=== PATIENT | female | born 1945 | race American Indian/Alaskan Native ===

== ENCOUNTER 2019-07-15 12:20 | Inpatient (IN) | payer BC, MEDICARE ==
--- NOTE | 2019-07-15 12:45 | Event Note ---
ED Screening Note Date of service: 07/15/19 Time: 12:37 ED Screening Note: This is a 74 y.o. F. that presents to the ER with tarry stools from Dr. Esposito office. Reports abdominal pain and tarry stools for 3 days. This initial assessment/diagnostic orders/clinical plan/treatment(s) is/are subj ect to change based on patients health status, clinical progression and re- assessment by fellow clinical providers in the ED. Further treatment and workup at subsequent clinical providers discretion. Patient/guardian urged not to elope from the ED as their condition may be serious if not clinically assessed and managed. Initial orders include: Labs and CT of abdomen
[2019-07-15 13:49] LABS: Basophils % (Auto) 0.6 % (0.0-1.8); Eosinophils # (Auto) 0.2 K/mm3 (0.0-0.4); Eosinophils % (Auto) 2.1 % (0.0-4.3); Hematocrit 28.2 % (30.3-42.9); Hemoglobin 9.3 gm/dl (10.1-14.3); Lymphocytes # (Auto) 1.9 K/mm3 (1.2-5.4); Lymphocytes % (Auto) 24.5 % (13.4-35.0); Mean Corpuscular HGB Conc 33 % (30-34); Mean Corpuscular Volume 85 fl (79-97); Monocytes # (Auto) 0.6 K/mm3 (0.0-0.8); Monocytes % (Auto) 7.2 % (0.0-7.3); Platelet Count 301 K/mm3 (140-440); Red Blood Count 3.33 M/mm3 (3.65-5.03); Red Cell Distribution Width 15.9 % (13.2-15.2)
[2019-07-15 14:12] LABS: Albumin 3.4 g/dL (3.9-5); Calcium 8.9 mg/dL (8.4-10.2)
[2019-07-15 14:19] LABS: Bacteria,Urine 1+ /HPF (Negative); Bilirubin,Urine NEG (Negative); Blood,Urine NEG (Negative); Color,Urine Yellow (Yellow); Mucus,Urine FEW /HPF; Protein,Urine <15 mg/dL mg/dL (Negative); Urobilinogen,Urine < 2.0 mg/dL (<2.0)
[2019-07-15] MEDS ORDERED: PANTOPRAZOLE 40 MG INJ IV ONE (14:45)
--- NOTE | 2019-07-15 15:04 | Emergency Department Report ---
ED GI Bleed HPI - General Chief complaint: Abdominal Pain Stated complaint: BLOOD IN STOOL Time Seen by Provider: 07/15/19 12:37 Source: patient Mode of arrival: Ambulatory Limitations: No Limitations - History of Present Illness Initial comments: Mrs. Craig is a 74 yo female with hx of HTN and gastric bypass 2013 who presents with dark tarry stools for the past 3 days. She has mild epigastric pain persistent. No hx of PUD. Does not use aspirin or ibuprofen. Referred to ED after being evaluated by PCP Dr. Vaibhav CLAUDIO complaint: melena, other (Dark tarry stool) -: Gradual, days(s) (3) Location: epigastric Radiation: none Quality: dull Consistency: constant Improves with: none Worsens with: none Context: other (hx of gastric bypass 2013 at [facility]) - Related Data Allergies Allergy/AdvReac Type Severity Reaction Status Date / Time No Known Allergies Allergy Unverified 01/18/15 12:12 ED Review of Systems ROS: Stated complaint: BLOOD IN STOOL Other details as noted in HPI Comment: All other systems reviewed and negative Constitutional: malaise Respiratory: denies: cough, shortness of breath Cardiovascular: denies: chest pain Gastrointestinal: abdominal pain. denies: nausea, vomiting, diarrhea ED Past Medical Hx - Past Medical History Previous Medical History?: Yes Hx Hypertension: Yes - Surgical History Past Surgical History?: Yes Additional Surgical History: Gastric Bypass 2013. Hysterectomy - Social History Smoking Status: Never Smoker Substance Use Type: None ED Physical Exam - General Limitations: No Limitations General appearance: alert, in no apparent distress - Head Head exam: Present: atraumatic, normocephalic - Eye Eye exam: Present: normal appearance, scleral icterus - ENT ENT exam: Present: mucous membranes moist - Neck Neck exam: Present: normal inspection, full ROM - Respiratory Respiratory exam: Present: normal lung sounds bilaterally. Absent: respiratory distress, wheezes, rales, rhonchi, chest wall tenderness, accessory muscle use, decreased breath sounds, prolonged expiratory - Cardiovascular Cardiovascular Exam: Present: regular rate, normal rhythm, normal heart sounds. Absent: systolic murmur, diastolic murmur, rubs, gallop - GI/Abdominal GI/Abdominal exam: Present: soft, normal bowel sounds. Absent: distended, tenderness, guarding, rebound - Rectal Rectal exam: Present: heme (+) stool, black stool (black thick tarry stool), hemorrhoids - Extremities Exam Extremities exam: Present: normal inspection - Back Exam Back exam: Present: normal inspection - Neurological Exam Neurological exam: Present: alert, oriented X3 - Psychiatric Psychiatric exam: Present: normal affect, normal mood - Skin Skin exam: Present: warm, dry, intact, normal color. Absent: rash ED Course Vital Signs 07/15/19 12:37 Temperature 98.2 F Pulse Rate 76 Respiratory 20 Rate Blood Pressure 156/61 O2 Sat by Pulse 96 Oximetry ED Medical Decision Making - Lab Data Result diagrams: 07/15/19 13:15 07/15/19 13:15 Laboratory Results - last 24 hr 07/15/19 07/15/19 07/15/19 13:15 13:15 Unknown WBC 7.7 RBC 3.33 L Hgb 9.3 L Hct 28.2 L MCV 85 MCH 28 MCHC 33 RDW 15.9 H Plt Count 301 Lymph % (Auto) 24.5 [place] % (Auto) 7.2 Eos % (Auto) 2.1 Baso % (Auto) 0.6 Lymph # 1.9 [place] # 0.6 Eos # 0.2 Baso # 0.0 Seg Neutrophils % 65.6 Seg Neutrophils # 5.1 Sodium 143 Potassium 3.9 Chloride 111.2 H Carbon Dioxide 22 Anion Gap 14 BUN 25 H Creatinine 1.5 H Estimated GFR 41 BUN/Creatinine Ratio 17 Glucose 105 H Calcium 8.9 Total Bilirubin 0.20 AST 20 ALT 15 Alkaline Phosphatase 81 Total Protein 6.7 Albumin 3.4 L Albumin/Globulin Ratio 1.0 Lipase 21 Urine Color Yellow Urine Turbidity Clear Urine pH 5.0 Ur Specific [place] 1.019 Urine Protein <15 mg/dl Urine Glucose (UA) Neg Urine Ketones Neg Urine Blood Neg Urine Nitrite Neg Urine Bilirubin Neg Urine Urobilinogen < 2.0 Ur Leukocyte Esterase Neg Urine WBC (Auto) 1.0 Urine RBC (Auto) 2.0 U Epithel Cells (Auto) 1.0 Urine Bacteria (Auto) 1+ Urine Mucus Few - Medical Decision Making Mrs. Craig presents with UGIB. I suspect ulcer related to previous gastric bypass. Protonix bolus and infusion initiated in the ED. GI consulted. Admitted to hospitalist [facility] in fair condition. I provided bridging admission orders. Critical Care Time: Yes Critical care attestation.: If time is entered above; I have spent that time in minutes in the direct care of this critically ill patient, excluding procedure time. 40 minutes of critical care time excluding procedures were used in the care of the patient. I updated the daughters per phone. I had an extensive conversati on with about treatment plan. Patient required multiple consultations with the GI service and hospitalist service. She required multiple assessments. ED Disposition Clinical Impression: UGIB (upper gastrointestinal bleed) Disposition: OP ADMIT IP TO THIS HOSP Is pt being admited?: Yes Does the pt Need Aspirin: No Condition: Stable
[2019-07-15] MEDS ORDERED: PANTOPRAZOLE 80 MG in SODIUM CHLORIDE 0.9% 100 ML IV ONE (15:45)
--- NOTE | 2019-07-15 15:45 | Gastroenterology Consultation ---
History of Present Illness - Reason for Consult Consult date: 07/15/19 UGIB Requesting physician: GA ALVARADO - History of Present Illness Patient is a 74 y/o female with PMH of HTN and s/p gastric bypass in 2013 who presented to ED with c/o dark tarry stools x 3 days with associated mild epigastic pain. Last episode of black stool was this afternoon. No hematemesis or hematochezia. Denies fever, CP, SOB, unintentional wt loss, diarrhea, or constipation. No hx of prior GI bleeding, PUD, or liver disease. No ETOH abuse or NSAID use. Last EGD in 2013 prior to gastric bypass with normal results per patient. Last PO intake was at 1000 this am with solid food. Past History Past Medical History: hypertension Past Surgical History: bowel surgery (bastric bypass 2013) Social history: denies: smoking, alcohol abuse Medications and Allergies Allergies Allergy/AdvReac Type Severity Reaction Status Date / Time No Known Allergies Allergy Unverified 01/18/15 12:12 Active Meds: Active Medications Pantoprazole Sodium 80 mg/ (Sodium Chloride) 100 mls @ 10 mls/hr IV ONCE ONE Stop: 07/16/19 01:44 Last Admin: 07/15/19 15:40 Dose: 8 mg/hr, 10 mls/hr Documented by: medications reviewed/updated as required Review of Systems - Review of Systems All systems: negative Gastrointestinal: abdominal pain (epigastric), melena, no hematemesis, no coffee ground emesis, no hematochezia Exam - Constitutional Vital Signs: Temp Pulse Resp BP Pulse Ox 98.2 F 76 20 156/61 96 07/15/19 12:37 07/15/19 12:37 07/15/19 12:37 07/15/19 12:37 07/15/19 12:37 General appearance: no acute distress - EENT Eyes: PERRL, EOM intact ENT: hearing intact - Respiratory Respiratory effort: normal - Cardiovascular Rhythm: regular - Gastrointestinal General gastrointestinal: Present: soft, tender (slight TTP in epigastric area), non-distended, normal bowel sounds - Integumentary Integumentary: Present: warm, dry - Neurologic Neurological: alert and oriented x3 - Labs CBC & Chem 7: 07/15/19 13:15 07/15/19 13:15 Lab Results: Laboratory Results - last 24 hr 07/15/19 07/15/19 07/15/19 13:15 13:15 Unknown WBC 7.7 RBC 3.33 L Hgb 9.3 L Hct 28.2 L MCV 85 MCH 28 MCHC 33 RDW 15.9 H Plt Count 301 Lymph % (Auto) 24.5 [place] % (Auto) 7.2 Eos % (Auto) 2.1 Baso % (Auto) 0.6 Lymph # 1.9 [place] # 0.6 Eos # 0.2 Baso # 0.0 Seg Neutrophils % 65.6 Seg Neutrophils # 5.1 Sodium 143 Potassium 3.9 Chloride 111.2 H Carbon Dioxide 22 Anion Gap 14 BUN 25 H Creatinine 1.5 H Estimated GFR 41 BUN/Creatinine Ratio 17 Glucose 105 H Calcium 8.9 Total Bilirubin 0.20 AST 20 ALT 15 Alkaline Phosphatase 81 Total Protein 6.7 Albumin 3.4 L Albumin/Globulin Ratio 1.0 Lipase 21 Urine Color Yellow Urine Turbidity Clear Urine pH 5.0 Ur Specific [place] 1.019 Urine Protein <15 mg/dl Urine Glucose (UA) Neg Urine Ketones Neg Urine Blood Neg Urine Nitrite Neg Urine Bilirubin Neg Urine Urobilinogen < 2.0 Ur Leukocyte Esterase Neg Urine WBC (Auto) 1.0 Urine RBC (Auto) 2.0 U Epithel Cells (Auto) 1.0 Urine Bacteria (Auto) 1+ Urine Mucus Few Assessment and Plan 1.UGIB/melena 2.Hx of gastric bypass 2013 -afebrile -WBC, plt, LFT, and lipase WNL -BUN 25 -H/H 9.3/28.2 -continue to monitor H/H and transfuse as needed -pt reports dark tarry stool with associated epigastric pain x 3 days. No hematemesis or hematochezia. -currently HD stable -etiology-possible ulcer (anastomotic?) vs other -will schedule for EGD tomorrow given PO intake with solid food today, but will be available for emergent EGD if needed -Keep NPO; INR in am -continue protonix drip -continue supportive care -will follow
--- NOTE | 2019-07-15 16:03 | XRay Report ---
CHEST 1 VIEW INDICATION / CLINICAL INFORMATION: upper gi bleed. COMPARISON: None available. FINDINGS: SUPPORT DEVICES: None. HEART / MEDIASTINUM: No significant abnormality. LUNGS / PLEURA: No significant pulmonary or pleural abnormality.. No pneumothorax. ADDITIONAL FINDINGS: No significant additional findings. IMPRESSION: 1. No acute findings. Signer Name: Reji Khoury MD Signed: 07/15/2019 3:59 PM Workstation Name: [id number]
--- NOTE | 2019-07-15 16:25 | History and Physical Report ---
History of Present Illness Chief complaint: I have blood in the toilet History of present illness: 74 YO Female with Obesity, HTN, presents to ED for evaluation. Pt states that she has experienced multiple "black, tarry bowel movements over the past 3 days. Pt reports epigastric discomfort over the past 3 days. Pt describes bowel movements as "large", and reports that the "toilet was filled with blood". Pt denies nausea and vomiting. Pt transported to [facility] via private vehicle. Pt seen and evaluated in ED and found to have GI Bleed. Pt is dizzy, and acknowledges feeling weak. Pt HGB is stable at 10. GI consulted in ED. Pt admitted to IM and initiated on PPI therapy. Pt denies fever, chills, CP, Palpitations, Trauma, Ingestion of Food/Water from new/different sources, unintentional weight loss, night sweats, or recent ill contacts. Pt admitted to [facility] for further management of GI Bleeding. No prior admission for review. All medication listed at time of admission has been reconciled. Past History Past Medical History: hypertension Past Surgical History: hysterectomy, bowel surgery (bastric bypass 2013) Social history: denies: smoking, alcohol abuse Family history: no significant family history (reviewed) Medications and Allergies Allergies Allergy/AdvReac Type Severity Reaction Status Date / Time No Known Allergies Allergy Unverified 01/18/15 12:12 Active Meds: Active Medications Pantoprazole Sodium 80 mg/ (Sodium Chloride) 100 mls @ 10 mls/hr IV ONCE ONE Stop: 07/16/19 01:44 Last Admin: 07/15/19 15:40 Dose: 8 mg/hr, 10 mls/hr Documented by: Review of Systems Constitutional: weakness, no weight loss, no weight gain, no chills, no sweats, no night sweats Ears, nose, mouth and throat: no ear pain, no ear discharge, no tinnitis, no decreased hearing, no nose pain, no nasal congestion, no nasal discharge Breasts: no change in shape, no swelling, no mass Cardiovascular: no chest pain, no orthopnea, no palpitations, no rapid/irregular heart beat, no edema Respiratory: no cough, no cough with sputum, no excessive sputum, no hemoptysis Gastrointestinal: BRBPR, no abdominal pain, no nausea, no vomiting, no constipation Genitourinary Female: no pelvic pain, no flank pain, no menorrhagia, no dysuria, no urinary frequency, no urgency Rectal: no pain, no incontinence, no itching, no hemorrhoids Musculoskeletal: no neck pain, no shooting arm pain, no arm numbness/tingling, no shooting leg pain, no leg numbness/tingling Integumentary: no rash, no pruritis, no redness, no wounds, no jaundice Neurological: no transient paralysis, no numbness, no seizures, no syncope Psychiatric: no anxiety, no memory loss, no hypersomnia, no change in appetite, no change in libido Endocrine: no cold intolerance, no heat intolerance, no polyphagia, no excessive thirst, no polyuria, no excessive sweating Hematologic/Lymphatic: no easy bruising, no easy bleeding, no lymphadenopathy, no lymphedema Allergic/Immunologic: no urticaria, no allergic rhinitis, no wheezing, no persistent infections, no anaphylaxis, no angioedema Exam - Constitutional Vitals: Temp Pulse Resp BP Pulse Ox 98.2 F 76 20 156/61 96 07/15/19 12:37 07/15/19 12:37 07/15/19 12:37 07/15/19 12:37 07/15/19 12:37 General appearance: Present: mild distress, obese - EENT Eyes: Present: PERRL ENT: hearing intact, clear oral mucosa - Neck Neck: Present: supple, normal ROM - Respiratory Respiratory effort: normal Respiratory: bilateral: CTA - Cardiovascular Heart Sounds: Present: S1 & S2. Absent: rub, click - Extremities Extremities: pulses symmetrical, No edema Peripheral Pulses: within normal limits - Abdominal General gastrointestinal: Present: soft, non-tender, non-distended, normal bowel sounds, other (protuberant, hyperactive bowel sounds) Female genitourinary: Present: normal - Integumentary Integumentary: Present: clear, warm, dry - Musculoskeletal Musculoskeletal: generalized weakness - Psychiatric Psychiatric: appropriate mood/affect, intact judgment & insight - Neurologic Neurologic: CNII-XII intact, moves all extremities Results - Labs CBC & Chem 7: 07/15/19 13:15 07/15/19 13:15 Labs: Abnormal lab results 07/15/19 07/15/19 Range/Units 13:15 13:15 RBC 3.33 L (3.65-5.03) M/mm3 Hgb 9.3 L (10.1-14.3) gm/dl Hct 28.2 L (30.3-42.9) % RDW 15.9 H (13.2-15.2) % Chloride 111.2 H (98-107) mmol/L BUN 25 H (7-17) mg/dL Creatinine 1.5 H (0.7-1.2) mg/dL Glucose 105 H (65-100) mg/dL Albumin 3.4 L (3.9-5) g/dL Assessment and Plan - Patient Problems (1) GI bleeding Current Visit: Yes Status: Acute Qualifiers: GI bleed type/associated pathology: unspecified gastrointestinal hemorrhage type Qualified Code(s): K92.2 - Gastrointestinal hemorrhage, unspecified Plan to address problem: Admit to IMCU: GI consulted, IV ppi therapy, PRBC transfusion if hgb drops by 2 or more grams, serial cbc, endoscopy as per GI team. (2) ALAN (acute kidney injury) Current Visit: Yes Status: Acute Plan to address problem: IVF resuscitation therapy, monitor uop q shift, supportive are. repeat bmp in am to monitor serum creatnine. (3) Obesity (BMI 35.0-39.9 without comorbidity) Current Visit: Yes Status: Acute Plan to address problem: S/P Gastric Bypass, balanced diet, increased physical activity at discharge. (4) Advance care planning Current Visit: Yes Status: Acute Plan to address problem: Pt is Full code. Pt and acknowledge understanding and agreement with care plan. (5) DVT prophylaxis Current Visit: Yes Status: Acute Plan to address problem: SCD to BLE while in bed, Hold anticoagulation for now.
[2019-07-15] MEDS ORDERED: ALBUTEROL 2.5 MG/3 ML NEBU IH PRN (16:26)
[2019-07-16 04:09] LABS: Basophils % (Auto) 0.3 % (0.0-1.8); Eosinophils # (Auto) 0.2 K/mm3 (0.0-0.4); Eosinophils % (Auto) 2.5 % (0.0-4.3); Hemoglobin 9.1 gm/dl (10.1-14.3); Lymphocytes # (Auto) 2.2 K/mm3 (1.2-5.4); Lymphocytes % (Auto) 29.5 % (13.4-35.0); Mean Corpuscular HGB Conc 32 % (30-34); Mean Corpuscular Volume 85 fl (79-97); Monocytes # (Auto) 0.7 K/mm3 (0.0-0.8); Platelet Count 306 K/mm3 (140-440); Red Blood Count 3.31 M/mm3 (3.65-5.03); Red Cell Distribution Width 15.8 % (13.2-15.2)
[2019-07-16 04:21] LABS: INR 1.02 (0.87-1.13)
[2019-07-16 04:25] LABS: Albumin 3.4 g/dL (3.9-5); Calcium 9.1 mg/dL (8.4-10.2)
--- NOTE | 2019-07-16 09:39 | Gastroenterology Progress Note ---
Assessment and Plan GI: presented w/ anemia and melena, signs UGI bleed - h/h stable w/o signs bleeding overnight - continue PPI IV - due to Anaes schedule may have to push EGD to am, will do today of signs bleeding - will start po, NPO after MN - ok to transfer to floor from GI standpoint - will follow Subjective Date of service: 07/16/19 Interval history: - no signs bleeding overnight Objective - Constitutional Vitals: Temp Pulse Resp BP Pulse Ox 98.3 F 73 15 142/67 96 07/16/19 07:46 07/16/19 06:00 07/16/19 06:00 07/16/19 06:00 07/16/19 06:00 General appearance: no acute distress - EENT Eyes: PERRL - Neck Neck: supple - Respiratory Respiratory: bilateral: CTA - Cardiovascular Rhythm: regular Heart Sounds: Present: S1 & S2 - Gastrointestinal General gastrointestinal: Present: soft, non-tender, non-distended - Labs CBC & Chem 7: 07/16/19 03:43 07/16/19 03:43 Labs: Laboratory Results - last 24 hr 07/15/19 07/15/19 07/15/19 13:15 13:15 Unknown WBC 7.7 RBC 3.33 L Hgb 9.3 L Hct 28.2 L MCV 85 MCH 28 MCHC 33 RDW 15.9 H Plt Count 301 Lymph % (Auto) 24.5 [place] % (Auto) 7.2 Eos % (Auto) 2.1 Baso % (Auto) 0.6 Lymph # 1.9 [place] # 0.6 Eos # 0.2 Baso # 0.0 Seg Neutrophils % 65.6 Seg Neutrophils # 5.1 PT INR Sodium 143 Potassium 3.9 Chloride 111.2 H Carbon Dioxide 22 Anion Gap 14 BUN 25 H Creatinine 1.5 H Estimated GFR 41 BUN/Creatinine Ratio 17 Glucose 105 H Calcium 8.9 Magnesium Total Bilirubin 0.20 AST 20 ALT 15 Alkaline Phosphatase 81 Total Protein 6.7 Albumin 3.4 L Albumin/Globulin Ratio 1.0 Lipase 21 Urine Color Yellow Urine Turbidity Clear Urine pH 5.0 Ur Specific [place] 1.019 Urine Protein <15 mg/dl Urine Glucose (UA) Neg Urine Ketones Neg Urine Blood Neg Urine Nitrite Neg Urine Bilirubin Neg Urine Urobilinogen < 2.0 Ur Leukocyte Esterase Neg Urine WBC (Auto) 1.0 Urine RBC (Auto) 2.0 U Epithel Cells (Auto) 1.0 Urine Bacteria (Auto) 1+ Urine Mucus Few 07/16/19 07/16/19 07/16/19 03:43 03:43 03:43 WBC 7.3 RBC 3.31 L Hgb 9.1 L Hct 28.0 L MCV 85 MCH 27 L MCHC 32 RDW 15.8 H Plt Count 306 Lymph % (Auto) 29.5 [place] % (Auto) 9.0 H Eos % (Auto) 2.5 Baso % (Auto) 0.3 Lymph # 2.2 [place] # 0.7 Eos # 0.2 Baso # 0.0 Seg Neutrophils % 58.7 Seg Neutrophils # 4.3 PT INR Sodium 145 Potassium 4.3 Chloride 110.9 H Carbon Dioxide 24 Anion Gap 14 BUN 21 H Creatinine 1.1 Estimated GFR 59 BUN/Creatinine Ratio 19 Glucose 95 Calcium 9.1 Magnesium 2.20 Total Bilirubin 0.30 AST 18 ALT 13 Alkaline Phosphatase 78 Total Protein 6.5 Albumin 3.4 L Albumin/Globulin Ratio 1.1 Lipase Urine Color Urine Turbidity Urine pH Ur Specific [place] Urine Protein Urine Glucose (UA) Urine Ketones Urine Blood Urine Nitrite Urine Bilirubin Urine Urobilinogen Ur Leukocyte Esterase Urine WBC (Auto) Urine RBC (Auto) U Epithel Cells (Auto) Urine Bacteria (Auto) Urine Mucus 07/16/19 03:43 WBC RBC Hgb Hct MCV MCH MCHC RDW Plt Count Lymph % (Auto) [place] % (Auto) Eos % (Auto) Baso % (Auto) Lymph # [place] # Eos # Baso # Seg Neutrophils % Seg Neutrophils # PT 13.5 INR 1.02 Sodium Potassium Chloride Carbon Dioxide Anion Gap BUN Creatinine Estimated GFR BUN/Creatinine Ratio Glucose Calcium Magnesium Total Bilirubin AST ALT Alkaline Phosphatase Total Protein Albumin Albumin/Globulin Ratio Lipase Urine Color Urine Turbidity Urine pH Ur Specific [place] Urine Protein Urine Glucose (UA) Urine Ketones Urine Blood Urine Nitrite Urine Bilirubin Urine Urobilinogen Ur Leukocyte Esterase Urine WBC (Auto) Urine RBC (Auto) U Epithel Cells (Auto) Urine Bacteria (Auto) Urine Mucus
[2019-07-16] MEDS ORDERED: WATER FOR IRRIG STERILE 250 ML BOTTLE IR ONE (10:00)
[2019-07-16] MEDS ORDERED: SODIUM CHLORIDE 0.9% 1000 ML 1,000 ML ONE (10:00)
--- NOTE | 2019-07-16 11:30 | Consultation ---
History of Present Illness Consult date: 07/16/19 History of present illness: 74 year old obese -[place] female presenting with tach stools to the emergency room. She is found to be anemic but she denies any cardiac symptoms. Past History Past Medical History: hypertension Past Surgical History: hysterectomy, bowel surgery (bastric bypass 2013) Social history: denies: smoking, alcohol abuse Family history: no significant family history (reviewed) Medications and Allergies Allergies Allergy/AdvReac Type Severity Reaction Status Date / Time No Known Allergies Allergy Unverified 01/18/15 12:12 Home Medications Medication Instructions Recorded Confirmed Last Taken Type Cyanocobalamin [Vitamin B-12] 1,000 mcg IM QMONTH 07/15/19 07/15/19 07/03/19 10:00 History amLODIPine 10 mg PO DAILY 07/15/19 07/15/19 07/15/19 10:00 History Active Meds: Active Medications Albuterol (Proventil) 2.5 mg IH Q3HRT PRN PRN Reason: Shortness Of Breath Sodium Chloride (Nacl 0.9% 1000 Ml) 1,000 mls @ 50 mls/hr IV DIRECT XIAO Sodium Chloride (Sodium Chloride Flush Syringe 10 Ml) 10 ml IV BID XIAO Last Admin: 07/15/19 22:20 Dose: 10 ml Documented by: Sodium Chloride (Sodium Chloride Flush Syringe 10 Ml) 10 ml IV PRN PRN PRN Reason: LINE FLUSH Review of Systems Constitutional: no weight loss, no weight gain, no night sweats, no anorexia, no fatigue Ears, nose, mouth and throat: no ear pain, no ear discharge, no tinnitis Breasts: no normal, no discharge Cardiovascular: no chest pain, no orthopnea, no palpitations, no lightheadedness, no shortness of breath, no paroxysmal nocturnal dyspnea Respiratory: no cough, no hemoptysis, no congestion, no wheezing, no pleurisy Gastrointestinal: no abdominal pain, no nausea, no vomiting Genitourinary Female: no dyspareunia, no dysmenorrhea, no pelvic pain Rectal: no pain, no incontinence Musculoskeletal: no neck stiffness, no neck pain, no shooting arm pain, no arm numbness/tingling Integumentary: no rash, no pruritis, no redness Neurological: no head injury, no parathesias, no numbness, no vertigo, no headaches Endocrine: no cold intolerance, no heat intolerance, no polyphagia, no excessive thirst Hematologic/Lymphatic: no easy bruising, no easy bleeding Allergic/Immunologic: no urticaria, no allergic rhinitis, no wheezing Physical Examination Vital Signs Temp Pulse Resp BP Pulse Ox 98.2 F 76 20 156/61 96 07/15/19 12:37 07/15/19 12:37 07/15/19 12:37 07/15/19 12:37 07/15/19 12:37 General appearance: no acute distress, obese HEENT: Positive: PERRL, Normocephaly, Mucus Membranes Moist Neck: Positive: neck supple, trachea midline, Other (Midline trach). Negative: JVD/HJR Cardiac: Positive: Regular Rate, S1/S2, PMI, Dilated, Laterally Displaced Lungs: Positive: clear to auscultation, No Wheeze, Rales, Rhonchi Neuro: Positive: Grossly Intact Abdomen: Positive: Unremarkable, Soft, Active Bowel Sounds Extremities: Present: normal Results 07/16/19 03:43 07/16/19 03:43 Cardiac Enzymes 07/15/19 07/16/19 Range/Units 13:15 03:43 AST 20 18 (5-40) units/L Coagulation 07/16/19 Range/Units 03:43 PT 13.5 (12.2-14.9) Sec. INR 1.02 (0.87-1.13) CBC 07/15/19 07/16/19 Range/Units 13:15 03:43 WBC 7.7 7.3 (4.5-11.0) K/mm3 RBC 3.33 L 3.31 L (3.65-5.03) M/mm3 Hgb 9.3 L 9.1 L (10.1-14.3) gm/dl Hct 28.2 L 28.0 L (30.3-42.9) % Plt Count 301 306 (140-440) K/mm3 Lymph # 1.9 2.2 (1.2-5.4) K/mm3 [place] # 0.6 0.7 (0.0-0.8) K/mm3 Eos # 0.2 0.2 (0.0-0.4) K/mm3 Baso # 0.0 0.0 (0.0-0.1) K/mm3 Comprehensive Metabolic Panel 07/15/19 07/16/19 Range/Units 13:15 03:43 Sodium 143 145 (137-145) mmol/L Potassium 3.9 4.3 (3.6-5.0) mmol/L Chloride 111.2 H 110.9 H (98-107) mmol/L Carbon Dioxide 22 24 (22-30) mmol/L BUN 25 H 21 H (7-17) mg/dL Creatinine 1.5 H 1.1 (0.7-1.2) mg/dL Glucose 105 H 95 (65-100) mg/dL Calcium 8.9 9.1 (8.4-10.2) mg/dL AST 20 18 (5-40) units/L ALT 15 13 (7-56) units/L Alkaline Phosphatase 81 78 (35-129) units/L Total Protein 6.7 6.5 (6.3-8.2) g/dL Albumin 3.4 L 3.4 L (3.9-5) g/dL EKG interpretations - Telemetry EKG Rhythm: Sinus Rhythm Assessment and Plan 1. Acute GI bleed 2. Anemia secondary to GI bleed 3. Essential hypertension 4. Midline Tracheostomy 5. Obesity Plan. Patient is hemodynamically stable. No cardiac symptoms. GI consult pending
--- NOTE | 2019-07-16 13:39 | Progress Note ---
Assessment and Plan /Acute GI bleeding GI consulted, placed on IV ppi therapy, PRBC transfusion if hgb drops by 2 or more grams, serial cbc, endoscopy as per GI team tomorrow. NPO after midnight / ALAN (acute kidney injury) likely vasomotor nephropathy resolved with IVF resuscitation therapy, / Obesity (BMI 35.0-39.9 without comorbidity) S/P Gastric Bypass, balanced diet as tolerated /HTN, stable / Advance care planning Pt is Full code. Pt and acknowledge understanding and agreement with care plan. / DVT prophylaxis SCD to BLE while in bed, Hold anticoagulation for now. Subjective Date of service: 07/16/19 Interval history: Patient seen and examined. Medical records and medication list reviewed. No acute event overnight noted by the RN. Patient denies any chest pain or difficulty breathing. Patient denies any further active bleeding. Discussed plan of care at bedside with patient. Objective - Constitutional Vitals: Vital Signs - 12hr 07/16/19 07/16/19 07/16/19 02:00 02:01 03:01 Temperature Pulse Rate 62 58 L Pulse Rate [ 62 From Monitor] Respiratory 20 29 H 20 Rate Blood Pressure 124/58 112/84 O2 Sat by Pulse 99 99 99 Oximetry 07/16/19 07/16/19 07/16/19 04:01 04:20 05:00 Temperature 98.0 F Pulse Rate 58 L 60 Pulse Rate [ 60 From Monitor] Respiratory 13 22 Rate Blood Pressure 133/64 132/54 O2 Sat by Pulse 98 100 Oximetry 07/16/19 07/16/19 07/16/19 06:00 07:01 07:46 Temperature 98.3 F Pulse Rate 73 58 L Pulse Rate [ From Monitor] Respiratory 15 22 Rate Blood Pressure 142/67 134/58 O2 Sat by Pulse 96 98 Oximetry 07/16/19 07/16/19 07/16/19 08:00 09:01 09:52 Temperature Pulse Rate 58 L 57 L Pulse Rate [ 70 72 From Monitor] Respiratory 14 11 L 31 H Rate Blood Pressure 139/60 162/71 O2 Sat by Pulse 100 100 100 Oximetry General appearance: Present: no acute distress, well-nourished, obese - EENT Eyes: PERRL, EOM intact ENT: hearing intact, clear oral mucosa Ears: bilateral: normal - Neck Neck: supple, normal ROM - Respiratory Respiratory effort: normal Respiratory: bilateral: CTA - Cardiovascular Rhythm: regular Heart Sounds: Present: S1 & S2. Absent: gallop, rub Extremities: pulses intact, No edema, normal color, Full ROM - Gastrointestinal General gastrointestinal: Present: soft, non-tender, non-distended, normal bowel sounds - Integumentary Integumentary: clear, warm, dry - Musculoskeletal Musculoskeletal: 1, strength equal bilaterally - Neurologic Neurologic: moves all extremities - Psychiatric Psychiatric: memory intact, appropriate mood/affect, intact judgment & insight - Labs CBC & Chem 7: 07/16/19 03:43 07/16/19 03:43 Labs: Abnormal lab results 07/15/19 07/15/19 07/16/19 Range/Units 13:15 13:15 03:43 RBC 3.33 L 3.31 L (3.65-5.03) M/mm3 Hgb 9.3 L 9.1 L (10.1-14.3) gm/dl Hct 28.2 L 28.0 L (30.3-42.9) % MCH 27 L (28-32) pg RDW 15.9 H 15.8 H (13.2-15.2) % Millard % (Auto) 9.0 H (0.0-7.3) % Chloride 111.2 H (98-107) mmol/L BUN 25 H (7-17) mg/dL Creatinine 1.5 H (0.7-1.2) mg/dL Glucose 105 H (65-100) mg/dL Albumin 3.4 L (3.9-5) g/dL 07/16/19 Range/Units 03:43 RBC (3.65-5.03) M/mm3 Hgb (10.1-14.3) gm/dl Hct (30.3-42.9) % MCH (28-32) pg RDW (13.2-15.2) % Millard % (Auto) (0.0-7.3) % Chloride 110.9 H (98-107) mmol/L BUN 21 H (7-17) mg/dL Creatinine (0.7-1.2) mg/dL Glucose (65-100) mg/dL Albumin 3.4 L (3.9-5) g/dL
[2019-07-16] MEDS ORDERED: MORPHINE 2 MG/1 ML INJ IV ONE (17:30)
[2019-07-17] MEDS ORDERED: SODIUM CHLORIDE 0.9% 1000 ML 1,000 ML IV SCH (07:00)
[2019-07-17] MEDS ORDERED: WATER FOR IRRIG STERILE 1,000 ML BOTTLE ONE (07:42)
[2019-07-17] MEDS ORDERED: WATER FOR IRRIG STERILE 250 ML BOTTLE IR ONE (07:42)
--- NOTE | 2019-07-17 08:07 | Anesthesia Day of Surgery ---
Anesthesia Day of Surgery - Day of Surgery Patient Examined: Yes Patient H&P Reviewed: Yes Patient is NPO: Yes
--- NOTE | 2019-07-17 08:07 | Anesthesia Consultation ---
Anesthesia Consult and Med Hx Date of service: 07/17/19 - Airway Anesthetic Teeth Evaluation: Partials ROM Head & Neck: Adequate Mental/Hyoid Distance: Adequate Mallampati Class: Class II Intubation Access Assessment: Good - Pulmonary Exam CTA: Yes - Cardiac Exam Cardiac Exam: RRR - Pre-Operative Health Status ASA Pre-Surgery Classification: ASA2 Proposed Anesthetic Plan: MAC - Cardiovascular System Hx Hypertension: Yes
[2019-07-17] MEDS ORDERED: PROPOFOL 200 MG/20 ML VIAL IV ONE (08:23)
--- NOTE | 2019-07-17 09:11 | Progress Note ---
Assessment and Plan 1. Acute GI bleed 2. Anemia secondary to GI bleed 3. Essential hypertension 4. Obesity Plan. Patient is hemodynamically stable. No cardiac symptoms. Management as per GI/surgery Subjective Date of service: 07/17/19 Interval history: No cardiac symptoms. Objective Vital Signs Temp Pulse Pulse Resp BP BP Pulse Ox 07/17/19 08:00 98.3 F 56 L 12 151/64 97 07/17/19 07:49 64 100 07/17/19 07:47 99.3 F 57 L 18 151/64 97 07/17/19 05:32 56 L 07/17/19 02:41 98.1 F 61 18 155/61 98 07/16/19 20:00 59 L 18 95 07/16/19 19:52 98.4 F 59 L 18 140/56 95 07/16/19 18:32 98.2 F 66 18 125/48 94 07/16/19 18:30 142/52 07/16/19 18:11 72 11 L 140/62 100 07/16/19 18:00 71 24 140/62 99 07/16/19 17:51 70 13 109/55 96 07/16/19 17:41 72 29 H 119/62 97 07/16/19 17:30 76 19 119/62 97 07/16/19 17:21 77 29 H 109/55 07/16/19 17:11 75 26 H 109/55 07/16/19 17:00 96 H 22 159/72 07/16/19 16:51 90 26 H 159/72 97 07/16/19 16:41 89 22 159/72 97 07/16/19 16:00 98.7 F 65 61 24 156/78 99 07/16/19 15:01 67 17 148/62 99 07/16/19 14:00 61 65 24 146/68 100 07/16/19 13:00 59 L 19 150/77 100 07/16/19 12:00 98.3 F 64 64 18 151/74 100 07/16/19 11:01 64 28 H 138/66 07/16/19 10:00 80 11 L 147/56 100 07/16/19 09:52 72 31 H 100 - Physical Examination General: Appears Well, No Apparent Distress, Other (obese) HEENT: Positive: PERRL, Normocephaly, Mucus Membranes Moist Neck: Positive: neck supple, trachea midline, Other. Negative: JVD/HJR Cardiac: Lungs: Neuro: Positive: Grossly Intact Abdomen: Positive: Unremarkable, Soft, Active Bowel Sounds /Rectal: Normal Prostate, No Masses Skin: Musculoskeletal: No Fluid Collection, No Pain, Normal Range of Motion Gait: Normal Gait Extremities: Present: normal
--- NOTE | 2019-07-17 09:21 | Post Operative Note ---
Pre-op diagnosis: gi bleed Post-op diagnosis: same Findings: EGD: hiatal hernia - gastric bypass intact - otherwise negative Procedure: EGD Anesthesia: MAC Surgeon: SHAYLA HARKINS Estimated blood loss: none Pathology: list Specimen disposition: to lab Condition: stable Disposition: floor
[2019-07-17 09:26] VITALS: BP 126/53
--- NOTE | 2019-07-17 13:18 | Discharge Summary ---
Providers - Providers Date of Admission: 07/15/19 16:26 Date of discharge: 07/17/19 Attending physician: JAMI GALAN 07/15/19 15:30 Consult to Physician [CONS] Stat Comment: DR JENNY Rivas/MELODY @[id number] Consulting Provider: ALLEN LIRA Physician Instructions: Reason For Exam: UGIB 07/16/19 03:15 Consult to Physician [CONS] Urgent Comment: Consulting Provider: ANAY ESPINOSA Physician Instructions: Reason For Exam: Second degree AV block Primary care physician: ASHLEY BOYD MD Hospitalization Condition: Stable Pertinent studies: CXR - no acute findings Hospital course: Patient is a 74 y/o female with PMH of HTN and s/p gastric bypass in 2013 who presented to ED with c/o dark tarry stools x 3 days with associated mild epigastic pain. Last episode of black stool was this afternoon. No hematemesis or hematochezia. Denies fever, CP, SOB, unintentional wt loss, diarrhea, or constipation. No hx of prior GI bleeding, PUD, or liver disease. No ETOH abuse or NSAID use. Last EGD in 2013 prior to gastric bypass with normal results per patient. Last PO intake was at 1000 this am with solid food. Discharge diagnosis: /Acute GI bleeding GI consulted, placed on IV ppi therapy, Upper GI endoscopy as per GI team showed no actibe GI bleed. Plan for coloscopy as outpt, H/H stable / ALAN (acute kidney injury) likely vasomotor nephropathy resolved with IVF resuscitation therapy, / Obesity (BMI 35.0-39.9 without comorbidity) S/P Gastric Bypass, balanced diet as tolerated /HTN, stable / Advance care planning Pt is Full code. Pt and acknowledge understanding and agreement with care plan. / DVT prophylaxis SCD to BLE while in bed, Hold anticoagulation for now. Disposition: -01 TO HOME OR SELFCARE Time spent for discharge: 34 minutes Core Measure Documentation - Palliative Care Palliative Care/ Comfort Measures: Not Applicable - Core Measures Any of the following diagnoses?: none Exam - Constitutional Vitals: Temp Pulse Resp BP Pulse Ox 98.3 F 69 19 126/53 100 07/17/19 08:46 07/17/19 10:00 07/17/19 10:00 07/17/19 09:16 07/17/19 10:00 General appearance: Present: no acute distress, well-nourished, obese - EENT Eyes: Present: PERRL ENT: hearing intact, clear oral mucosa - Neck Neck: Present: supple, normal ROM - Respiratory Respiratory effort: normal Respiratory: bilateral: CTA - Cardiovascular Heart Sounds: Present: S1 & S2. Absent: rub, click - Extremities Extremities: pulses symmetrical, No edema Peripheral Pulses: within normal limits - Abdominal General gastrointestinal: Present: soft, non-tender, non-distended, normal bowel sounds - Integumentary Integumentary: Present: clear, warm, dry - Musculoskeletal Musculoskeletal: gait normal, strength equal bilaterally - Psychiatric Psychiatric: appropriate mood/affect, intact judgment & insight - Neurologic Neurologic: CNII-XII intact, moves all extremities Plan Activity: advance as tolerated Weight Bearing Status: Weight Bear as Tolerated Diet: low fat, low salt Additional Instructions: F/u with GI for outpt colonoscopy Follow up with: ASHLEY BOYD MD [Primary Care Provider] - 7 Days Prescriptions: Pantoprazole [Protonix] 40 mg PO QDAY #30 tablet
--- NOTE | 2019-07-17 19:05 | Post Anesthesia Evaluation ---
- Post Anesthesia Evaluation Patient Participated: Yes Airway Patent: Yes Stable Respiratory Function: Yes Nausea/Vomiting: No Temp > 96.8F: Yes Pain Manageable: Yes Adequeate Hydration: Yes Anesthesia Complications: No Block Receding Appropriately: Not Applicable Patient on Ventilator: No
--- NOTE | 2019-07-18 10:59 | Operative Report ---
PROCEDURE: EGD. INDICATIONS: 1. Anemia. 2. Gastrointestinal bleed. MEDICATIONS: Propofol per [employer]NAGER [employer]. COMPLICATIONS: None. DESCRIPTION OF PROCEDURE: The patient brought to the procedure suite. The patient had the procedure discussed with her at length. All risks, complications and benefits discussed, after which the patient signed for the procedure performed. The patient was placed in left lateral decubitus position. Mouth block was placed in the patient's oral cavity. After adequate sedation medication as above, endoscope was introduced into the mouth and brought to level of the second portion of duodenum. Retroflexion view was performed. The patient's vital signs remained stable throughout the procedure. FINDINGS: There was noted to be a small hiatal hernia at GE junction 40 cm from the gums. Esophagus otherwise appeared to be normal. There was a small remaining gastric remnant of the gastric body at that area. There was noted to be a gastric bypass with only minimal erythema around the surgical site. Both the afferent and efferent limbs of the small bowel appeared normal. No pathology suggestive of bleeding was noted. No interventions were performed. The patient tolerated the procedure well. No complications during the procedure. IMPRESSION: 1. Hiatal hernia. 2. Otherwise normal esophagus. 3. Remnants of gastric stomach intact. 4. Anastomosis from gastric bypass intact. 5. Both the afferent and efferent limbs of small bowel are intact. RECOMMENDATIONS: 1. Follow hematocrit and transfuse as needed. 2. Advance diet. 3. Discussed with patient at length, and she would prefer to proceed with further evaluation as an outpatient. 4. Okay to discharge from GI standpoint, we will sign off, call if needed. JOB# [id number] CAB/NTS
== END 2019-07-17 14:20 | disposition home or self-care (01) | DRG 377 ==
LOC: ED 12:20 → IMCU 16:26 → CC1 19:51 → 2B-ACE 07-16 18:31
PROVIDERS: ADMIT Internal Medicine; ATTEND Internal Medicine
PROC: 0DJ08ZZ Inspection of Upper Intestinal Tract, Via Natural or Artificial Opening Endoscopic (ICD-10-PCS; principal; 2019-07-17)
DX: K92.2 Gastrointestinal hemorrhage, unspecified (principal); N17.0 Acute kidney failure with tubular necrosis; I10 Essential (primary) hypertension; K44.9 Diaphragmatic hernia without obstruction or gangrene; D64.9 Anemia, unspecified; E66.9 Obesity, unspecified; Z98.84 Bariatric surgery status; Z90.710 Acquired absence of both cervix and uterus; Z79.899 Other long term (current) drug therapy; Z68.36 Body mass index [BMI] 36.0-36.9, adult
CPT/HCPCS: 36415; 71045; 80053; 81001; 83690; 83735; 85014; 85018; 85025; 85610; 93005; 93010; 96365; 96375; G0378; C9113; J2270; J2704; J7030